=== PATIENT | male | born 1950 | race Caucasian/White ===

== ENCOUNTER 2017-06-01 10:01 | Day surgery (SDC) | payer MEDICARE, OTHER ==
[2017-05-29 09:48] VITALS: BMI 20.9
[2017-06-01] MEDS ORDERED: LEVOFLOXACIN 500 MG PREMIX BAG IVPB ONE (12:50)
[2017-06-01] MEDS ORDERED: MIDAZOLAM HCL 2 MG/2 ML SINGLE DOSE VIAL ONE (12:53)
[2017-06-01] MEDS ORDERED: ONDANSETRON 4 MG/2 ML VIAL IVPUSH PRN (13:35)
[2017-06-01 14:20] VITALS: TEMP 98.5
[2017-06-01 14:58] VITALS: BP 140/70; PULSE 73
--- NOTE | 2017-06-01 15:48 | OP ---
Operative Note - Note: Operative Date: 06/01/17 Pre-Operative Diagnosis: left renal stone Operation: left eswl Findings: 5mm x 5mm left upper pole stone Post-Operative Diagnosis: Same as Pre-op Surgeon: Ajay Lainez Anesthesia: Fractional
--- NOTE | 2017-06-02 09:21 | OP ---
DATE OF OPERATION: 06/01/2017 PREOPERATIVE DIAGNOSIS: Left renal stone. POSTOPERATIVE DIAGNOSIS: Left renal stone. PROCEDURE: Left extracorporeal shock wave lithotripsy. ATTENDING SURGEON: Manuel Stringer MD ANESTHESIA: General. DESCRIPTION OF OPERATION: The patient was brought in the operating room, placed in supine position on the operating room table. Ultrasonography and fluoroscopy were performed. A 5 mm x 5 mm left upper pole renal stone was identified. Fractional anesthesia as well as antibiotics was then administered. Extracorporeal shock wave lithotripsy was commenced at this point; 2500 impulses at 20 joules of power were administered to the stone. Excellent fragmentation was noted under real-time ultrasonography and fluoroscopy. No complications were noted. The disposition of the patient was to the recovery room. MANUEL STRINGER M.D. [id number]
== END 2017-06-01 14:58 | disposition home or self-care (01) ==
LOC: JASU-SURG 10:01
PROVIDERS: ATTEND Urology
PROC: 0TF4XZZ Fragmentation in Left Kidney Pelvis, External Approach (ICD-10-PCS; principal; 2017-06-01 12:00)
DX: N20.0 Calculus of kidney (principal)
CPT/HCPCS: 94760

== ENCOUNTER 2017-12-14 13:50 | Emergency (ER) | payer MEDICARE, OTHER ==
[2017-12-14 14:14] VITALS: TEMP 97.6; BMI 23.0
[2017-12-14] MEDS ORDERED: SODIUM CHLORIDE 500 ML IV STA (15:43)
--- NOTE | 2017-12-14 16:10 | PDOC ---
History of Present Illness <Chase Carvajal - Last Filed: 12/14/17 16:57> <Taniya Rascon - Last Filed: 12/14/17 17:49> - General Chief Complaint: Lightheaded Stated Complaint: DIZZINESS Time Seen by Provider: 12/14/17 14:14 Past History - Past Medical History Anemia: No Asthma: Yes Cancer: No Cardiac Disorders: No CVA: No COPD: Yes (EMPHYSEMA) CHF: No Dementia: No Diabetes: No GI Disorders: Yes (DIVERTICULOSIS,HEMORRHOIDS, gastric ulcer) Disorders: Yes (hx kidney stones) HTN: No Hypercholesterolemia: No Liver Disease: No Seizures: No Thyroid Disease: No - Surgical History Abdominal Surgery: No Appendectomy: Yes (2 years ago) Cardiac Surgery: No Cholecystectomy: No Lung Surgery: No Neurologic Surgery: No Orthopedic Surgery: No - Suicide/Smoking/Psychosocial Hx Smoking History: Former smoker Have you smoked in the past 12 months: No Number of Cigarettes Smoked Daily: 5 If you are a former smoker, when did you quit?: 14 months ago Information on smoking cessation initiated: No 'Breaking Loose' booklet given: 06/01/17 Hx Alcohol Use: No Drug/Substance Use Hx: No Substance Use Type: Alcohol Hx Substance Use Treatment: No <Chase Carvajal - Last Filed: 12/14/17 16:57> <Taniya Rascon - Last Filed: 12/14/17 17:49> - Past Medical History Allergies/Adverse Reactions: Allergies Allergy/AdvReac Type Severity Reaction Status Date / Time Penicillins Allergy "I DON'T Verified 06/01/17 10:42 KNOW WHAT HAPPENS" Home Medications: Ambulatory Orders Montelukast Na [Singulair -] 10 mg PO HS 04/10/15 Simvastatin [Zocor -] 40 mg PO HS 04/10/15 Omeprazole [Prilosec] 20 mg PO BID 05/02/15 Vitamin B Complex [B Complex] 1 each PO DAILY 05/02/15 Cholecalciferol (Vitamin D3) [Vitamin D3] 5,000 unit PO DAILY 06/16/16 Fluticasone Prop 0.05% Nasal [Flonase -] 1 - 2 spray NS DAILY PRN 06/16/16 Loratadine 10 mg PO DAILY 06/16/16 Tamsulosin HCl 0.4 mg PO DAILY 06/16/16 Thiamine Mononitrate [Vitamin B-1] 100 mg PO DAILY 06/16/16 Tiotropium Perry [Spiriva] 1 inh PO DAILY 06/16/16 Gabapentin [Neurontin -] 400 mg PO Q8H 10/16/16 Prednisone 10 mg PO BID 05/29/17 Acetaminophen W/ Codeine #3 [Tylenol # 3 -] 1 tab PO TID PRN #90 tablet MDD 3 Albuterol Sulfate [Proair Hfa] 8.5 gm IH QID PRN 11/17/17 Umeclidinium Perry [Incruse Ellipta] 62.5 mcg IH DAILY 11/17/17 Review of Systems - Review of Systems Constitutional: Yes: Weakness. No: Chills, Fever Respiratory: No: Cough, Shortness of Breath Cardiac (ROS): Yes: Lightheadedness. No: Chest Pain, Edema, Palpitations, Syncope ABD/GI: No: Diarrhea, Vomiting Neurological: Yes: Dizziness (chronic) All Other Systems: Reviewed and Negative <Chase Carvajal - Last Filed: 12/14/17 16:57> *Physical Exam - Vital Signs Last Vital Signs Temp Pulse Resp BP Pulse Ox 97.6 F 74 14 100/68 98 12/14/17 14:01 12/14/17 14:01 12/14/17 14:01 12/14/17 14:01 12/14/17 14:01 <Chase Carvajal - Last Filed: 12/14/17 16:57> - Vital Signs Last Vital Signs Temp Pulse Resp BP Pulse Ox 97.6 F 74 14 100/68 98 12/14/17 14:01 12/14/17 14:01 12/14/17 14:01 12/14/17 14:01 12/14/17 14:01 <Taniya Rascon - Last Filed: 12/14/17 17:49> Heart Score/ECG Review #1 ECG reviewed & interpreted by me at: 14:41 General ECG Interpretation: Sinus Rhythm, Normal Rate (80), Normal Intervals ( LBBB, QRS 126, QTC 477), No acute ischemic changes Compared to previous ECG there are: No significant change (c/w / EKG from Dr. becerra office) <Chase Carvajal - Last Filed: 12/14/17 16:57> ED Treatment Course - LABORATORY CBC & Chemistry Diagram: 12/14/17 15:58 12/14/17 15:58 - RADIOLOGY Radiology Studies Ordered: Category Date Time Status CHEST PA & LAT [RAD] Stat Radiology 12/14/17 15:43 Ordered <Chase Carvajal - Last Filed: 12/14/17 16:57> - LABORATORY CBC & Chemistry Diagram: 12/14/17 15:58 12/14/17 15:58 - ADDITIONAL ORDERS Additional order review: Laboratory Results 12/14/17 12/14/17 12/14/17 17:17 15:58 15:58 PT with INR 14.50 H INR 1.28 H Sodium 138 Potassium 4.8 Chloride 110 H Carbon Dioxide 20 L D Anion Gap 8 BUN 22 H D Creatinine 1.6 H D Creat Clearance w eGFR 43.20 Random Glucose 107 H D Calcium 8.0 L Magnesium 1.8 Total Bilirubin 0.5 D AST 29 D ALT 47 D Alkaline Phosphatase 100 Creatine Kinase 79 Troponin I < 0.02 Total Protein 7.2 Albumin 3.8 Urine Color Straw Urine Appearance Clear Urine pH 6.0 Ur Specific Price 1.012 Urine Protein Negative Urine Glucose (UA) Negative Urine Ketones Negative Urine Blood Negative Urine Nitrite Negative Urine Bilirubin Negative Urine Urobilinogen Negative Ur Leukocyte Esterase Negative 12/14/17 15:58 RBC 4.01 MCV 88.0 MCHC 33.5 RDW 15.7 MPV 8.3 Neutrophils % 57.5 D Lymphocytes % 24.6 D Monocytes % 6.9 Eosinophils % 9.9 H Basophils % 1.1 - Medications Given in the ED: ED Medications Discontinued Medications Generic Name Dose Route Start Last Admin Trade Name Freq PRN Reason Stop Dose Admin Sodium Chloride 500 mls @ 500 mls/hr 12/14/17 15:43 12/14/17 16:11 Normal Saline - IV 12/14/17 16:42 500 mls/hr ASDIR STA Administration <Taniya Rascon - Last Filed: 12/14/17 17:49> Medical Decision Making - Medical Decision Making 12/14/17 16:43 A portion of this note was documented by scribe services under my direction. I have reviewed the details of the note, within reason, and agree with the documentation with the following case summary and management plan written by me. 67-year-old male with history of hypertension, high cholesterol, chronic peripheral vertigo presents brought in by EMS after episode of lightheadedness this morning. Patient was in his usual state of good health, awoke this morning feeling not quite himself, then had a subsequent episode of transient lightheadedness lasting a few seconds, not typical of his baseline vertigo. He activated EMS, was noted to have blood pressure of 90 systolic, was given IV fluid resuscitation and presents here completely asymptomatic and wanting to go home. He never had chest pain, has unlimited exercise tolerance at baseline. Denies roblero/vision change/focal deficit. VSS, standing and wanting to go home. joking with staff, smiling, asx exam nonfocal, neuro normal 67y/o M with episode of light-headedness resolved. ? orthostatic, ? peripheral vertigo. EKG showed LBBB, new compared to prior EKG from 2016. Discussed with Dr. becerra, who also first noted LBBB (asx) last week in office as part of pre- op clearance. There is plan to f/u with Dr. Howell of cards prior to procedure. Agrees with brief ED workup (labs, UA) to r/o acute process. If wnl, can be discharged to continue outpt workup. labs, ua ekg done cxr reassess 12/14/17 16:53 CBC wnl. Cr 1.6, baseline 1-1.2. Discussed with Dr. Becerra. Given asx, pt can be discharged to prompt f/u in his office tomorrow. If persistent sxs, can place on obs for hydration and evaluation with Dr. Howell. UA pending, will dispo accordingly. Patient was signed out to the oncoming ED physician to follow-up the results, reassess the patient, and dispo accordingly. <Chase Carvajal - Last Filed: 12/14/17 16:57> *DC/Admit/Observation/Transfer <Chase Carvajal - Last Filed: 12/14/17 16:57> <Taniya Rascon - Last Filed: 12/14/17 17:49> Diagnosis at time of Disposition: Lightheaded, LBBB (left bundle branch block) - Discharge Dispostion Disposition: HOME Condition at time of disposition: Improved - Referrals Referrals: Da Becerra MD [Staff Physician] - Valente Howell MD [Staff Physician] - - Patient Instructions Printed Discharge Instructions: DI for Dizziness-Nonvertigo Additional Instructions: please followup with your regular physician - Post Discharge Activity
[2017-12-14 16:13] LABS: BASO % 1.1 % (0-2.0); EOS % 9.9 % (0-4.5); HEMATOCRIT 35.3 % (35.4-49); HEMOGLOBIN 11.8 GM/dL (11.7-16.9); LYMPH % 24.6 % (8-40); MCH 29.5 pg (25.7-33.7); MCHC 33.5 g/dl (32.0-35.9); MEAN PLT VOLUME 8.3 fl (7.5-11.1); MONO % 6.9 % (3.8-10.2); NEUT % 57.5 % (42.8-82.8); PLATELET COUNT 257 K/MM3 (134-434); RBC 4.01 M/mm3 (4.00-5.60); RDW 15.7 % (11.9-15.9); WHITE BLOOD COUNT 7.8 K/mm3 (4.0-10.0)
[2017-12-14 16:25] LABS: INR 1.28 (0.82-1.09); PROTHROMBIN TIME (PATIENT) 14.5 SEC (9.98-11.88)
[2017-12-14 16:39] LABS: ALBUMIN 3.8 g/dl (3.4-5.0); ANION GAP 8 (8-16); BLOOD UREA NITROGEN 22 mg/dL (7-18); CHLORIDE 110 mmol/L (98-107); CO2 20 mmol/L (21-32); CREATININE 1.6 mg/dL (0.7-1.3); GLUCOSE,RANDOM 107 mg/dL (74-106); MAGNESIUM 1.8 mg/dL (1.8-2.4); POTASSIUM 4.8 mmol/L (3.5-5.1); SGOT/AST 29 U/L (15-37); SGPT/ALT 47 U/L (12-78); SODIUM 138 mmol/L (136-145); TOT PROT 7.2 g/dl (6.4-8.2)
[2017-12-14 16:41] LABS: ALK PHOS 100 U/L (45-117); BILIRUBIN,TOTAL 0.5 mg/dL (0.2-1.0)
[2017-12-14 17:27] LABS: URINE APPEARANCE CLEAR; URINE BILIRUBIN NEGATIVE (NEGATIVE); URINE BLOOD NEGATIVE (NEGATIVE); URINE COLOR STRAW; URINE GLUCOSE (UA) NEGATIVE (NEGATIVE); URINE KETONE NEGATIVE (NEGATIVE); URINE LEUK ESTERASE NEGATIVE (NEGATIVE); URINE NITRITE NEGATIVE (NEGATIVE); URINE PROTEIN NEGATIVE (NEGATIVE); URINE UROBILINOGEN NEGATIVE mg/dL (0.2-1.0)
--- NOTE | 2017-12-14 17:48 | PDOC ---
*Physical Exam - Vital Signs Last Vital Signs Temp Pulse Resp BP Pulse Ox 97.6 F 74 14 100/68 98 12/14/17 14:01 12/14/17 14:01 12/14/17 14:01 12/14/17 14:01 12/14/17 14:01 ED Treatment Course - LABORATORY CBC & Chemistry Diagram: 12/14/17 15:58 12/14/17 15:58 - ADDITIONAL ORDERS Additional order review: Laboratory Results 12/14/17 12/14/17 12/14/17 17:17 15:58 15:58 PT with INR 14.50 H INR 1.28 H Sodium 138 Potassium 4.8 Chloride 110 H Carbon Dioxide 20 L D Anion Gap 8 BUN 22 H D Creatinine 1.6 H D Creat Clearance w eGFR 43.20 Random Glucose 107 H D Calcium 8.0 L Magnesium 1.8 Total Bilirubin 0.5 D AST 29 D ALT 47 D Alkaline Phosphatase 100 Creatine Kinase 79 Troponin I < 0.02 Total Protein 7.2 Albumin 3.8 Urine Color Straw Urine Appearance Clear Urine pH 6.0 Ur Specific Early 1.012 Urine Protein Negative Urine Glucose (UA) Negative Urine Ketones Negative Urine Blood Negative Urine Nitrite Negative Urine Bilirubin Negative Urine Urobilinogen Negative Ur Leukocyte Esterase Negative 12/14/17 15:58 RBC 4.01 MCV 88.0 MCHC 33.5 RDW 15.7 MPV 8.3 Neutrophils % 57.5 D Lymphocytes % 24.6 D Monocytes % 6.9 Eosinophils % 9.9 H Basophils % 1.1 - Medications Given in the ED: ED Medications Discontinued Medications Generic Name Dose Route Start Last Admin Trade Name Freq PRN Reason Stop Dose Admin Sodium Chloride 500 mls @ 500 mls/hr 12/14/17 15:43 12/14/17 16:11 Normal Saline - IV 12/14/17 16:42 500 mls/hr ASDIR STA Administration Medical Decision Making - Medical Decision Making 12/14/17 17:47 pt feeling better UA negative plan followup with your PCP *DC/Admit/Observation/Transfer Diagnosis at time of Disposition: Lightheaded, LBBB (left bundle branch block) - Discharge Dispostion Condition at time of disposition: Improved - Referrals Referrals: Valente Howell MD [Staff Physician] - Da Becerra MD [Staff Physician] - - Patient Instructions - Post Discharge Activity
[2017-12-14 18:15] VITALS: BP 115/69; PULSE 77
--- NOTE | 2017-12-15 12:35 | EKG ---
Test Reason : Blood Pressure : / mmHG Vent. Rate : 080 BPM Atrial Rate : 080 BPM P-R Int : 198 ms QRS Dur : 126 ms QT Int : 414 ms P-R-T Axes : 053 018 032 degrees QTc Int : 477 ms NORMAL SINUS RHYTHM LEFT BUNDLE BRANCH BLOCK ABNORMAL ECG WHEN COMPARED WITH ECG OF 14-DEC-2017 14:39, PREVIOUS ECG HAS UNDETERMINED RHYTHM, NEEDS REVIEW Confirmed by MD NINO, EDELMIRA ([id number]) on 12/15/2017 12:35:14 PM Referred By: Confirmed By:EDELMIRA ONEILL MD
== END 2017-12-14 18:01 | disposition home or self-care (01) ==
LOC: JER 13:50
PROC: 3E0337Z Introduction of Electrolytic and Water Balance Substance into Peripheral Vein, Percutaneous Approach (ICD-10-PCS; principal; 2017-12-14)
DX: R42 Dizziness and giddiness (principal); I44.7 Left bundle-branch block, unspecified; I10 Essential (primary) hypertension; E78.00 Pure hypercholesterolemia, unspecified; H81.399 Other peripheral vertigo, unspecified ear; J45.909 Unspecified asthma, uncomplicated; J43.8 Other emphysema; Z87.19 Personal history of other diseases of the digestive system; Z87.891 Personal history of nicotine dependence
CPT/HCPCS: 36415; 71046-TC-FY; 80053; 81003; 82550; 83735; 84484; 85025; 85610; 93005; 93010; 96360; 99283-25

== ENCOUNTER 2024-12-18 18:00 | Emergency (ER) | payer MEDICARE, OTHER ==
[2024-12-18 18:06] VITALS: BP 151/61; PULSE 70; RESP 18; TEMP 98.1; BMI 23.4
== END 2024-12-18 22:03 | disposition home or self-care (01) ==
LOC: JER 18:00
DX: R60.0 Localized edema (principal); M79.89 Other specified soft tissue disorders
CPT/HCPCS: 93970-TC; 99284-25

== ENCOUNTER 2025-02-19 11:05 | Emergency (ER) | payer MEDICARE, OTHER ==
[2025-02-19 11:14] VITALS: BP 120/60; PULSE 80; RESP 20; TEMP 98.5; BMI 23.0
[2025-02-19 12:35] LABS: ABSOLUTE IMMATURE GRANULOCYTES 0.02 x10^3/uL (0.0-0.031); BASOPHILS # 0.08 x10^3/uL (0.01-0.08); EOSINOPHIL % 4.1 % (0.8-7.0); EOSINOPHILS # 0.25 x10^3/uL (0.04-0.54); HEMATOCRIT 38.1 % (40.1-51.0); HEMOGLOBIN 12.8 g/dL (13.7-17.5); MCHC 33.6 g/dl (32.3-36.5); MEAN CELL VOLUME 94.3 fl (79.0-92.2); MEAN PLT VOLUME 10.2 fl (9.4-12.4); MONOCYTE # 0.36 x10^3/uL (0.30-0.82); PLATELET COUNT 231 x10^3/uL (163-337); RDW 13.5 % (12.2-16.6)
[2025-02-19 12:42] LABS: INR 1.16 (0.83-1.09); PROTHROMBIN TIME (PATIENT) 12.8 SEC (9.7-13.0)
[2025-02-19 12:44] LABS: ACTIVATED PTT 25.9 SECONDS (25.2-36.5)
[2025-02-19 12:59] LABS: CHLORIDE 106 mmol/L (98-107); POTASSIUM 4.8 mmol/L (3.5-5.1); SODIUM 138 mmol/L (136-145)
[2025-02-19 13:01] LABS: CALCIUM 9.3 mg/dL (8.5-10.1)
[2025-02-19 13:02] LABS: ANION GAP 6 mmol/L (4-13); BLOOD UREA NITROGEN 15.5 mg/dL (7-18); CO2 26 mmol/L (21-32); GLUCOSE,RANDOM 147 mg/dL (74-106)
[2025-02-19 13:04] LABS: SGPT/ALT 29 U/L (13-61)
[2025-02-19 13:05] LABS: CREATININE 1.4 mg/dL (0.55-1.3); SGOT/AST 40 U/L (15-37)
[2025-02-19 13:06] LABS: BILIRUBIN,TOTAL 0.6 mg/dL (0.2-1); TOT PROT 8.2 g/dl (6.4-8.2)
[2025-02-19 13:07] LABS: ALK PHOS 119 U/L (45-117)
[2025-02-19] MEDS: SODIUM CHLORIDE 1,000 ML IV STA (14:22)
== END 2025-02-19 16:45 | disposition left against medical advice (07) ==
LOC: JER 11:05
PROC: 3E0337Z Introduction of Electrolytic and Water Balance Substance into Peripheral Vein, Percutaneous Approach (ICD-10-PCS; principal; 2025-02-19)
DX: R55 Syncope and collapse (principal); R42 Dizziness and giddiness; R10.31 Right lower quadrant pain
CPT/HCPCS: 0241U-QW; 36415; 70450-TC; 70496-TC; 70498-TC; 71045-TC-FY; 72170-TC-FY; 74177-TC; 80053; 84484; 85025; 85610; 85730; 86140; 93005; 93010; 96360; 99285-25